=== PATIENT | male | born 1965 | race Caucasian/White ===

== ENCOUNTER 2023-11-07 21:08 | Emergency (ER) | payer BC, SELFPAY ==
[2023-11-07 21:13] VITALS: BP 194/87; PULSE 84; TEMP 36.9; O2SAT 94; BMI 33.9
--- NOTE | 2023-11-07 22:56 | ED_ITS ---
HPI - Abdominal Pain General Chief Complaint: Abdominal Pain Stated Complaint: abdominal/groin pain, poss hernia Time Seen by Provider: 11/07/23 21:44 Source: patient Mode of arrival: Wheelchair Limitations: no limitations History of Present Illness HPI narrative: 57-year-old male presents to the emergency department for abdominal pain. He is complaining of pain in the right lower quadrant of his abdomen and it has been there since noon, about 11 hours ago. He is worried it might be a hernia. There was no injury. He has been nauseous and has been vomiting. He has not had fever or hematemesis. The pain is moderate and comes and goes. Related Data Home Medications ?Medication ?Instructions ?Recorded ?Confirmed atorvastatin 80 mg tablet 80 mg PO DAILY 11/08/23 11/08/23 clopidogrel 75 mg tablet 75 mg PO DAILY 11/08/23 11/08/23 glipizide 5 mg tablet 5 mg PO TID 11/08/23 11/08/23 lisinopril 40 mg tablet 40 mg PO DAILY 11/08/23 11/08/23 metoprolol succinate 100 mg 100 mg PO DAILY 11/08/23 11/08/23 tablet,extended release 24 hr Allergies Allergy/AdvReac Type Severity Reaction Status Date / Time No Known Drug Allergies Allergy Verified 11/07/23 21:17 Review of Systems ROS Narrative A ten point review of systems is negative except as noted above. Exam Narrative Exam Narrative: Nurses note and vital signs reviewed and patient is not hypoxic. General: The patient appears uncomfortable. Skin: Warm, dry, no pallor noted. There is no rash noted. Head: Normocephalic, atraumatic Eye: Normal conjunctiva, no drainage Ears, Nose, Mouth, and Throat: oral mucosa is moist. Nares patent. Cardiovascular: Regular Rate and Rhythm Respiratory: Patient is in no distress, no accessory muscle use, lungs are clear to auscultation, no wheezing, rales or rhonchi Back: non-tender GI: He has a large mass in the right hemiscrotum which goes into the right inguinal area as well. Musculoskeletal: The patient has no evidence of calf tenderness, no pitting edema, symmetrical pulses noted bilaterally Neurological: A&O, normal speech Psychiatric: Cooperative Constitutional Vital Signs, click to edit/add: Last Vital Signs Temp 98.5 F 11/07/23 21:13 Pulse 104 H 11/08/23 02:20 Resp 27 H 11/08/23 02:20 BP 152/68 H 11/08/23 02:20 Pulse Ox 93 L 11/08/23 02:20 O2 Del Method Room Air 11/07/23 21:13 O2 Flow Rate 2 11/08/23 02:18 Course Vital Signs Vital signs: Vital Signs Temperature 98.5 F 11/07/23 21:13 Pulse Rate 84 11/07/23 21:13 Respiratory Rate 18 11/07/23 21:13 Blood Pressure 194/87 H 11/07/23 21:13 Pulse Oximetry 94 L 11/07/23 21:13 Oxygen Delivery Method Room Air 11/07/23 21:13 Temperature 98.5 F 11/07/23 21:13 Pulse Rate 104 H 11/08/23 02:20 Respiratory Rate 27 H 11/08/23 02:20 Blood Pressure 152/68 H 11/08/23 02:20 Pulse Oximetry 93 L 11/08/23 02:20 Oxygen Delivery Method Room Air 11/07/23 21:13 Oxygen Delivery Flow Rate 2 11/08/23 02:18 MDM - Abdominal Pain MDM Narrative Medical decision making narrative: Incarcerated hernia with possible strangulation is identified. I have not been able to reduce this hernia here in the emergency department despite IV conscious sedation. I discussed the case with Dr. Delacruz who requests the patient be transferred to a larger hospital. The patient requests to leave the hospital a nd I have spoken to Dr. Nguyen who accepts the patient. The patient is stable and agreeable for transfer The following procedure was performed by me. The procedure was discussed thoroughly with the patient prior to performing it and risks and benefits were discussed. The patient is agreeable with proceeding. IV conscious sedation was carried out with IV etomidate. Manual pressure was applied without successful reduction of the hernia. No complications. He had no desaturation. Total conscious sedation time 10 minutes. Differential Diagnosis Differential diagnosis: Likely abdominal pain, small bowel obstruction and other (Hernia, incarcerated hernia, strangulated hernia) Lab Data Attestation: I reviewed the patient's lab results. Labs: Lab Results 11/07/23 11/07/23 11/08/23 Range/Units 22:55 23:03 02:51 WBC 14.1 H (4.0-11.0) 10^3/uL RBC 5.62 (4.70-6.10) 10^6/uL Hgb 16.9 (14.0-18.0) g/dL Hct 50.0 (42.0-54.0) % MCV 89.0 (80.0-94.0) fL MCH 30.1 (25.9-34.0) pg MCHC 33.8 (29.9-35.2) g/dL RDW 12.2 (11.0-15.0) % Plt Count 224 (150-450) 10^3/uL MPV 9.6 (9.5-13.5) fL Neut % (Auto) 90.4 H (43.0-75.0) % Lymph % (Auto) 5.3 L (20.5-60.0) % [place] % (Auto) 3.7 (1.7-12.0) % Eos % (Auto) 0.0 L (0.9-7.0) % Baso % (Auto) 0.1 L (0.2-2.0) % Neut # (Auto) 12.7 H (1.4-6.5) 10^3/uL Lymph # (Auto) 0.8 L (1.2-3.8) 10^3/uL [place] # (Auto) 0.5 (0.3-0.8) 10^3/uL Eos # (Auto) 0.0 (0.0-0.7) 10^3/uL Baso # (Auto) 0.0 (0.0-0.1) 10^3/uL Abs Immat Gran (auto) 0.07 H (0.00-0.03) 10^3/uL Imm/Tot Granulo (auto) 0.5 (0.0-0.5) % Sodium 137 (136-145) mmol/L Potassium 4.4 (3.5-5.1) mmol/L Chloride 99 (98-107) mmol/L Carbon Dioxide 27.4 (21.0-32.0) mmol/L Anion Gap 15.0 BUN 16.0 (7.0-18.0) mg/dL Creatinine 1.03 (0.70-1.30) mg/dL Est GFR ( Amer) >60 (>=60) Est GFR (Non-Af Amer) >60 (>=60) BUN/Creatinine Ratio 15.5 Glucose 327 H (74-106) mg/dL Lactate 3.9 H* 2.5 H* (0.4-2.0) mmol/L Calcium 9.6 (8.5-10.1) mg/dL Total Bilirubin 0.9 (0.2-1.0) mg/dL Direct Bilirubin 0.3 H (0.0-0.2) mg/dL AST 14 L (15-37) U/L ALT 25 (16-63) U/L Alkaline Phosphatase 130 H (46-116) U/L Total Protein 7.1 (6.4-8.2) g/dL Albumin 3.4 (3.4-5.0) g/dL Globulin 3.7 g/dL Albumin/Globulin Ratio 0.9 Amylase 33 (25-115) U/L Lipase 25.0 (16.0-77.0) U/L Urine Color Lt. yellow (YELLOW) Urine Clarity Clear (CLEAR) Urine pH 6.0 (5.0-9.0) Ur Specific [place] 1.025 (1.005-1.025) Urine Protein Negative (NEG/TRACE) mg/dL Urine Glucose (UA) >=1000 A (NEGATIVE) mg/dL Urine Ketones Negative (NEGATIVE) mg/dL Urine Occult Blood Small A (NEGATIVE) Urine Nitrite Negative (NEGATIVE) Urine Bilirubin Negative (NEGATIVE) Urine Urobilinogen 0.2 (0.2-1.0) EU/dL Ur Leukocyte Esterase Negative (NEGATIVE) Urine RBC 0-2 (0-2) #/HPF Urine WBC 2-5 A (NONE SEEN) #/HPF Ur Squamous Epith Cells Few A (NONE/RARE) #/LPF Urine Crystals None seen (None Seen) #/HPF Amorphous Sediment Few Urine Bacteria None seen (NONE SEEN) #/HPF Urine Casts None seen (NONE SEEN) #/LPF Urine Mucus None seen (NONE SEEN) Ur Culture Indicated? No Imaging Data CT scan - abdomen: Radiologist's impression: ITS Impressions Abdomen/Pelvis CT 11/07/23 23:23 IMPRESSION: 1. There is a right inguinal hernia containing mildly dilated loops of small bowel that demonstrate bowel wall thickening. There is free fluid in the inguinal hernia. These findings are concerning for a strangulated hernia causing a small bowel obstruction. 2. A portion of the bladder is also within the right inguinal hernia. There is mild bilateral hydroureter and hydronephrosis. Please correlate for urinary outlet obstruction, possibly due to the hernia. 3. Suspected cholelithiasis without evidence of acute inflammation. 4. Indeterminate right adrenal nodules measuring up to 2.5 x 2.0 cm. These could be further evaluated with a nonemergent outpatient contrast-enhanced MRI examination as clinically indicated. 5. Normal appendix. 6. Urinary bladder wall thickening. Please correlate with urinalysis for infection. 7. Prostatomegaly. Electronically authenticated by: Pat COLLINS Date: 11/08/2023 01:27 Discharge Plan Discharge Chief Complaint: Abdominal Pain Clinical Impression: Hernia with strangulation Patient Disposition: [facility] Time of Disposition Decision: 03:30 Discharge Location: [facility] Condition: Fair Mode of Transportation: EMS
[2023-11-07 23:04] LABS: Basophils Percent Auto 0.1 % (0.2-2.0); Hemoglobin 16.9 g/dL (14.0-18.0); Immature Granulocytes Abs Auto 0.07 10^3/uL (0.00-0.03); Immature Granulocytes Pct Auto 0.5 % (0.0-0.5); Lymphocytes Absolute Auto 0.8 10^3/uL (1.2-3.8); Lymphocytes Percent Auto 5.3 % (20.5-60.0); Mean Corpuscular HGB Conc 33.8 g/dL (29.9-35.2); Mean Corpuscular Hemoglobin 30.1 pg (25.9-34.0); Mean Platelet Volume 9.6 fL (9.5-13.5); Monocytes Absolute Auto 0.5 10^3/uL (0.3-0.8); Monocytes Percent Auto 3.7 % (1.7-12.0); Neutrophils Absolute Auto 12.7 10^3/uL (1.4-6.5); Neutrophils Percent Auto 90.4 % (43.0-75.0); Platelet Count 224 10^3/uL (150-450); Red Blood Count 5.62 10^6/uL (4.70-6.10); Red Cell Distribution Width 12.2 % (11.0-15.0); White Blood Count 14.1 10^3/uL (4.0-11.0)
[2023-11-07 23:10] LABS: Bilirubin Urine NEGATIVE (NEGATIVE); Blood Urine SMALL (NEGATIVE); Clarity Urine CLEAR (CLEAR); Color Urine LT. YELLOW (YELLOW); Glucose Urine UA >=1000 mg/dL (NEGATIVE); Ketones Urine NEGATIVE (NEGATIVE); Leukocyte Esterase Urine NEGATIVE (NEGATIVE); Nitrite Urine NEGATIVE (NEGATIVE); Protein Urine NEGATIVE (NEG/TRACE); Specific Gravity Urine 1.025 (1.005-1.025); Urobilinogen Urine 0.2 EU/dL (0.2-1.0)
[2023-11-07] MEDS: 0.9 % SODIUM CHLORIDE 1,000 ML 1000 ML IV (23:12)
[2023-11-07] MEDS: ONDANSETRON PF 4 MG/2 ML VIAL IV (23:13)
[2023-11-07] MEDS: MORPHINE SULFATE 4 MG/ML VIAL IV (23:13)
[2023-11-07 23:17] LABS: Amorphous Sediment Urine FEW; Bacteria Urine NONE SEEN #/HPF (NONE SEEN); Cast Seen? NONE SEEN #/LPF (NONE SEEN); Crystals Seen? None Seen #/HPF (None Seen); Mucus Urine NONE SEEN (NONE SEEN); RBC Urine 0-2 #/HPF (0-2); Squamous Epithelial Cell Urine FEW #/LPF (NONE/RARE); Urine Culture Indicated NO
[2023-11-07 23:19] LABS: Alanine Aminotransferase 25 U/L (16-63); Albumin Globulin Ratio 0.9; Albumin Level 3.4 g/dL (3.4-5.0); Alkaline Phosphatase 130 U/L (46-116); Amylase 33 U/L (25-115); Aspartate Amino Transferase 14 U/L (15-37); BUN Creatinine Ratio 15.5; Bilirubin Direct 0.3 mg/dL (0.0-0.2); Bilirubin Total 0.9 mg/dL (0.2-1.0); Calcium 9.6 mg/dL (8.5-10.1); Carbon Dioxide 27.4 mmol/L (21.0-32.0); Chloride 99 mmol/L (98-107); Estimated GFR (African America >60 (>=60); Estimated GFR (Non-African Ame >60 (>=60); Globulin 3.7 g/dL; Glucose 327 mg/dL (74-106); Potassium 4.4 mmol/L (3.5-5.1); Sodium 137 mmol/L (136-145); Total Protein 7.1 g/dL (6.4-8.2)
--- NOTE | 2023-11-07 23:23 | CT_ITS ---
The [address] [address] Patient Name: KENNETH SMITH MRN: [id number] date: 1965 Sex: M Assigned Patient Location: ER Current Patient Location: ER Accession/Order Number: [id number] Exam Date: 11/07/2023 23:44 Report Date: 11/08/2023 01:27 At the request of: SHEYLA HILLMAN Procedure: CT abdomen pelvis w con EXAM: CT abdomen pelvis w con HISTORY: Right lower quadrant pain, previous appendectomy COMPARISON: None. TECHNIQUE: Axial CT images through the abdomen and pelvis were obtained after the intravenous administration of contrast. Coronal and sagittal reformats were obtained. Dose reduction techniques were achieved by using automated exposure control and/or adjustment of mA and/or kV according to patient size and/or use of iterative reconstruction technique. FINDINGS: The visualized portions of the lung bases are clear. There is coronary artery disease. Abdomen: The liver and spleen enhance homogeneously without focal lesion. There is no intra or extrahepatic biliary duct dilatation. There is suspected cholelithiasis without evidence of acute inflammation. There are a couple indeterminate right adrenal nodules measuring up to 2.5 x 2.0 cm (series 3, image 28). There is mild bilateral hydronephrosis and hydroureter. The pancreas and the appendix are unremarkable. There is no mesenteric or retroperitoneal lymphadenopathy. There is a small fat-containing umbilical hernia. Pelvis: There is urinary bladder wall thickening. The rectum is unremarkable. There is no iliac or inguinal lymphadenopathy. There is a moderate-sized right inguinal hernia containing a portion of the bladder and loops of small bowel that are mildly dilated measuring up to 3.1 cm and demonstrate bowel wall thickening. Free fluid is seen within the right inguinal hernia. There is also mild air and fluid-filled dilated loops of small bowel measuring up to 3.3 cm. There is prostatomegaly. There is advanced atherosclerotic disease. Bone windows show no aggressive osseous lesions. CT/CT abdomen pelvis w con IMPRESSION: 1. There is a right inguinal hernia containing mildly dilated loops of small bowel that demonstrate bowel wall thickening. There is free fluid in the inguinal hernia. These findings are concerning for a strangulated hernia causing a small bowel obstruction. 2. A portion of the bladder is also within the right inguinal hernia. There is mild bilateral hydroureter and hydronephrosis. Please correlate for urinary outlet obstruction, possibly due to the hernia. 3. Suspected cholelithiasis without evidence of acute inflammation. 4. Indeterminate right adrenal nodules measuring up to 2.5 x 2.0 cm. These could be further evaluated with a nonemergent outpatient contrast-enhanced MRI examination as clinically indicated. 5. Normal appendix. 6. Urinary bladder wall thickening. Please correlate with urinalysis for infection. 7. Prostatomegaly. Electronically authenticated by: Pat COLLINS Date: 11/08/2023 01:27
[2023-11-08] VITALS (26 sets, daily range): BP systolic 138–180; BP diastolic 61–110; PULSE 86–112; O2SAT 69–97
[2023-11-08] MEDS: MORPHINE SULFATE 4 MG/ML VIAL IV (01:05)
[2023-11-08] MEDS: MIDAZOLAM HCL 2 MG/2 ML VIAL IV ×2 (01:53→02:00)
[2023-11-08 02:46] LABS: Lactate/Lactic Acid 3.9 mmol/L (0.4-2.0)
[2023-11-08 03:19] LABS: Lactate/Lactic Acid 2.5 mmol/L (0.4-2.0)
--- NOTE | 2023-11-08 03:38 | PC.NURSE ---
250 ml urine output
[2023-11-08] MEDS: PIPERACILLIN SODIUM/TAZOBACTAM 3.375 GM in 0.9 % SODIUM CHLORIDE 50 ML IV (04:02)
[2023-11-08] MEDS: 0.9 % SODIUM CHLORIDE 1,000 ML 125 ML IV (04:02)
== END 2023-11-08 04:45 | disposition short-term general hospital (02) ==
PROVIDERS: Emergency Provider Emergency Medicine; PCP Family Medicine
DX: K40.30 Unilateral inguinal hernia, with obstruction, without gangrene, not specified as recurrent (principal)
CPT/HCPCS: 36415; 74177; 80048; 80076; 81001; 82150; 83605; 83690; 85025; 96361; 96365; 96375; 96376; 99152; 99285; Q9967

== ENCOUNTER 2023-12-12 10:25 | Emergency (ER) | payer BC, SELFPAY ==
[2023-12-12 10:28] VITALS: BP 124/72; PULSE 86; TEMP 37; O2SAT 96; BMI 33.2
--- NOTE | 2023-12-12 10:44 | ED.GENADUL1 ---
HPI HPI - General Adult General Chief complaint: Extremity Injury, Lower Stated complaint: LOWER EXTREMITY PAIN Time Seen by Provider: 12/12/23 10:34 Source: patient Mode of arrival: walk-in Limitations: no limitations History of Present Illness HPI narrative: The patient presented to the ER with a right buttock pain that started this morning, no history of fall or trauma and no history of any other complaints of numbness or tingling down his legs The patient denies any causing factor He mentioned that he had some hip pain before Related Data Home Medications ?Medication ?Instructions ?Recorded ?Confirmed atorvastatin 80 mg tablet 80 mg PO DAILY 11/08/23 11/08/23 clopidogrel 75 mg tablet 75 mg PO DAILY 11/08/23 11/08/23 glipizide 5 mg tablet 5 mg PO TID 11/08/23 11/08/23 lisinopril 40 mg tablet 40 mg PO DAILY 11/08/23 11/08/23 metoprolol succinate 100 mg 100 mg PO DAILY 11/08/23 11/08/23 tablet,extended release 24 hr Previous Rx's ?Medication ?Instructions ?Recorded acetaminophen 650 mg 650 mg PO Q8H PRN pain #20 tabs 12/12/23 tablet,extended release (Tylenol 8 Hour) Allergies Allergy/AdvReac Type Severity Reaction Status Date / Time No Known Drug Allergies Allergy Verified 11/07/23 21:17 Opioid HPI Opioid Management Most Recent Opioid Data: Last Pain Scale 4 11/08/23 04:50 Last ED Pain Assessment 12/12/23 10:40 Review of Systems ROS Status of ROS 10 or more systems reviewed and unremarkable except as noted in history and below Exam Narrative Exam Narrative: Nurses notes and vital signs reviewed and patient is not hypoxic. General: Well-appearing and in no apparent distress. Skin: Warm, dry, no pallor noted. No rash. Head: Normocephalic, atraumatic. Neck: Supple, non-tender. Eye: Pupils are equal, round and EOMI. No scleral icterus. Ears, Nose, Mouth, and Throat: TM are clear, no nasal mucosal hypertrophy. Oral mucosa is moist, no posterior oropharynx erythema, uvula is mid-line Cardiovascular: Regular Rate and Rhythm without murmur, gallop or rub. Respiratory: No accessory muscle use or respiratory distress. Lungs are clear to auscultation, no wheezing, rales or rhonchi Chest Wall: no tenderness Back: No midline thoracic or lumbar vertebral tenderness. No CVA tenderness Musculoskeletal: The patient have tenderness upon palpation of the right hip and buttock area there is no skin changes and the patient have good anterior tibial pulse with no vascular injury detected in both legs No edema or swelling and no signs of infection Neurological: A&O x4. No cranial nerve dysfunction observed. No truncal ataxia. Moves all extremities. Sensation intact. Psychiatric: Cooperative and interactive. Normal mood and affect. Constitutional Vital Signs, click to edit/add: Last Vital Signs Temp 98.6 F 12/12/23 10:28 Pulse 86 12/12/23 10:28 Resp 18 12/12/23 10:28 BP 124/72 12/12/23 10:28 Pulse Ox 96 12/12/23 10:28 O2 Del Method Room Air 12/12/23 10:28 Course Vital Signs Vital signs: Vital Signs Temperature 98.6 F 12/12/23 10:28 Pulse Rate 86 12/12/23 10:28 Respiratory Rate 18 12/12/23 10:28 Blood Pressure 124/72 12/12/23 10:28 Pulse Oximetry 96 12/12/23 10:28 Oxygen Delivery Method Room Air 12/12/23 10:28 Temperature 98.6 F 12/12/23 10:28 Pulse Rate 86 12/12/23 10:28 Respiratory Rate 18 12/12/23 10:28 Blood Pressure 124/72 12/12/23 10:28 Pulse Oximetry 96 12/12/23 10:28 Oxygen Delivery Method Room Air 12/12/23 10:28 Medical Decision Making [facility] Narrative Medical decision making narrative: Right now the patient presenting to us with a right buttock area pain that is mostly secondary to either bursitis or inflammation of the buttock muscles No alarming symptoms The patient will be treated in the ER with Toradol as he take Plavix he is to continue Tylenol at home for supportive care The patient is to follow up with primary care physician in next 2-3 days or to return to the emergency department should any of the signs or symptoms worsen or new symptoms develop. The patient agrees with the following Diagnosis and Treatment plan and the patient will be discharged home. Discharge Plan Discharge Stand Alone Forms: Portal Instructions Chief Complaint: Extremity Injury, Lower Clinical Impression: Bursitis Qualifiers: Bursitis location: hip Hip bursitis location: other hip bursa Laterality: right Qualified Code(s): M70.71 - Other bursitis of hip, right hip Acute hip pain Qualifiers: Laterality: right Qualified Code(s): M25.551 - Pain in right hip Patient Disposition: Home, Self-Care Time of Disposition Decision: 10:47 Condition: Good Prescriptions / Home Meds: New acetaminophen [Tylenol 8 Hour] 650 mg tablet extended release 650 mg PO Q8H PRN (Reason: pain) Qty: 20 0RF No Action atorvastatin 80 mg tablet 80 mg PO DAILY clopidogrel 75 mg tablet 75 mg PO DAILY glipizide 5 mg tablet 5 mg PO TID lisinopril 40 mg tablet 40 mg PO DAILY metoprolol succinate 100 mg tablet extended release 24 hr 100 mg PO DAILY Print Language: Iranian Instructions: Hip Bursitis (ED), Arthralgia (ED) Referrals: ROSALIE LEONARDO [Primary Care Provider] - 1 week
[2023-12-12] MEDS: KETOROLAC TROMETHAMINE 30 MG/ML VIAL IM (10:55)
[2023-12-12 11:08] VITALS: BP 130/77; PULSE 85; O2SAT 96
== END 2023-12-12 11:10 | disposition home or self-care (01) ==
PROVIDERS: Emergency Provider Emergency Medicine; PCP Family Medicine
DX: M70.71 Other bursitis of hip, right hip (principal); M25.551 Pain in right hip
CPT/HCPCS: 96372; 99284; J1885